=== PATIENT | male | born 1950 | race Caucasian/White ===

== ENCOUNTER 2019-08-08 13:48 | Emergency (ER) | payer OTHER, MEDICARE ==
[2019-08-08] MEDS ORDERED: FUROSEMIDE 10 MG/ML 4ML VIAL ONE (14:50)
== END 2019-08-08 17:46 | disposition home or self-care (01) ==
LOC: EDH 13:48
DX: J81.1 Chronic pulmonary edema (principal); I89.0 Lymphedema, not elsewhere classified; R60.0 Localized edema; E11.9 Type 2 diabetes mellitus without complications; J44.9 Chronic obstructive pulmonary disease, unspecified; Z88.0 Allergy status to penicillin
CPT/HCPCS: 36415; 71045; 80053; 81003; 83880; 85025; 93971; 96374; 99285; J1940